=== PATIENT | male | born 1985 | race Caucasian/White ===

== ENCOUNTER 2018-01-19 11:09 | Emergency (ER) | payer OTHER ==
[~2018-01-19] VITALS: Ht 193 cm; Wt 137.9 kg
[2018-01-19] MEDS ORDERED: NORCO 5-325 TA1 EACH PO (12:13)
[2018-01-19] MEDS ORDERED: FLEXERIL PO (12:13)
[2018-01-19 12:24] VITALS: BP 143/79
== END 2018-01-19 12:24 | disposition home or self-care (01) ==
LOC: M.ERS 11:09
DX: M25.551 Pain in right hip (principal); M54.5 Low back pain